=== PATIENT | male | born 1980 | race Caucasian/White ===

== ENCOUNTER 2018-12-08 20:31 | Emergency (ER) | payer MEDICAID, OTHER, SELFPAY ==
[~2018-12-08] VITALS: Ht 177.8 cm; Wt 87.2 kg
[2018-12-08 20:33] VITALS: BP 136/93
--- NOTE | 2018-12-08 21:09 | NUR ---
pt given dc instructions and script, educated regarding rx for amoxicillin. pt a&O, resps even and unlabored. pt amb to dc desk with steady gait, nadn at dc.
== END 2018-12-08 21:07 | disposition home or self-care (01) ==
LOC: ED 21:05
DX: R51 Headache (principal); R22.0 Localized swelling, mass and lump, head; F17.210 Nicotine dependence, cigarettes, uncomplicated
CPT/HCPCS: 99283